=== PATIENT | female | born 1980 | race Two or more races ===

== ENCOUNTER 2017-12-03 01:05 | Emergency (ER) | payer OTHER ==
[~2017-12-03] VITALS: Ht 172.7 cm; Wt 64.4 kg
[2017-12-03] MEDS ORDERED: CITA10TA17 PO (01:26)
[2017-12-03] MEDS: DEXAMETHASONE SOD PHOSPHATE 4 MG INJ IM ONE (01:39)
[2017-12-03] MEDS ORDERED: DEXAMETHASONE SOD PHOSPHATE 10 MG INJ ONE (01:50)
[2017-12-03 01:55] VITALS: BP 107/54
--- NOTE | 2017-12-03 01:56 | NUR ---
Patient discharged to home in stable conditon. Written and verbal after care instructions given. Patient verbalizes understanding of instructions.RX given, injection site has not reaction.
== END 2017-12-03 01:57 | disposition home or self-care (01) ==
LOC: ER 01:15
DX: L50.0 Allergic urticaria (principal)
CPT/HCPCS: A4663; J1100